=== PATIENT | male | born 1970 | race Two or more races ===

== ENCOUNTER 2017-11-29 10:57 | Emergency (ER) | payer MEDICAID ==
[~2017-11-29] VITALS: Ht 177.8 cm; Wt 93.0 kg
[2017-11-29 11:02] VITALS: BP 147/88
[2017-11-29] MEDS ORDERED: KETOROLAC TROMETH 60MG/2ML VIAL IM ONE (12:45)
== END 2017-11-29 13:25 | disposition home or self-care (01) ==
LOC: ER 10:57
DX: M54.5 Low back pain (principal); R20.0 Anesthesia of skin; M79.1 Myalgia
CPT/HCPCS: 72100; 96372; 99284; J1885